=== PATIENT | male | born 1940 | race Caucasian/White ===

== ENCOUNTER 2017-03-15 16:14 | Emergency (ER) | payer OTHER ==
[~2017-03-15] VITALS: Ht 162.6 cm; Wt 69.9 kg
[2017-03-15] MEDS ORDERED: PLAVIX75 MG (16:35)
[2017-03-15] MEDS ORDERED: ZETIA10 MG (16:35)
[2017-03-15] MEDS ORDERED: CRESTOR40 MG (16:36)
== END 2017-03-15 20:09 | disposition home or self-care (01) ==
LOC: ER 16:14
DX: S50.01XA Contusion of right elbow, initial encounter (principal); L03.818 Cellulitis of other sites; W20.8XXA Other cause of strike by thrown, projected or falling object, initial encounter; Y93.89 Activity, other specified; Y92.89 Other specified places as the place of occurrence of the external cause; Y99.8 Other external cause status

== ENCOUNTER 2024-10-07 07:07 | Outpatient (CLI) | payer OTHER ==
[~2024-10-07 07:07] MED LIST: CRESTOR40 MG; PLAVIX75 MG; ZETIA10 MG
== END 2024-10-07 07:11 | disposition home or self-care (01) ==
LOC: TOM 07:07
PROVIDERS: ATTEND Internal Medicine Gastroenterology
DX: R10.9 Unspecified abdominal pain (principal)
CPT/HCPCS: 74177; Q9965